=== PATIENT | female | born 2000 | race African-American/Black ===

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

== ENCOUNTER 2020-09-10 07:50 | Emergency (ER) | payer OTHER ==
[~2020-09-10] VITALS: Ht 167.6 cm; Wt 59.0 kg
[2020-09-10 07:53] VITALS: BP 102/60
--- NOTE | 2020-09-10 08:00 | NUR ---
PT AMBULATED TO BED 7 WITH STEADY GAIT
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
--- NOTE | 2020-09-10 08:12 | NUR ---
DR CASTRO AT BEDSIDE
[2020-09-10] MEDS ORDERED: NAPR-54 PO (08:19)
[2020-09-10 08:25] VITALS: BP 102/60
== END 2020-09-10 08:25 | disposition home or self-care (01) ==
LOC: MED 07:50
DX: M79.18 Myalgia, other site (principal); F12.90 Cannabis use, unspecified, uncomplicated; Z79.899 Other long term (current) drug therapy
CPT/HCPCS: 81002; 81025; 99282

== ENCOUNTER 2021-08-12 07:36 | Emergency (ER) | payer OTHER ==
[~2021-08-12] VITALS: Ht 154.9 cm; Wt 54.4 kg
[~2021-08-12 07:36] MED LIST: NAPR-54 PO
[2021-08-12 07:51] VITALS: BP 117/67
--- NOTE | 2021-08-12 08:06 | NUR ---
21 Y/O F BIB FAMILY C/O RIGHT EAR PAIN AND N/V X 7 DAYS. PT STATES RIGHT EAR PAIN X 1 DAY, 6/10, SHARP, RADIATES TO RIGHT SHOULDER. INTERMITTENT VOMITING 3 EPISODES PER DAY UPON WAKING. NO AGGREVATING OR RELIEVING FACTORS. PT DENIES FEVER, CHILLS, DIAHRREA, CONSTIPATION. PT DENIES TAKING MEDICATION TO TREAT SYMPTOMS. SKIN IS INTACT, PINK/WARM/DRY; AAOX4, PERRL, WITH EVEN AND STEADY GAIT; LUNGS CLEAR BL, BREATHING UNLABORED; HR EVEN AND REGULAR, BL PERIPHERAL PULSES PRESENT; BS ACTIVE X4, NO TENDERNESS TO PALPATION, NO HEPATOSPLENOMEGALLY PALPATED, RESONANT TO PERCUSSION; PT DENIES ANY FEVER, CP, SOB, OR COUGH AT THIS TIME; VSS; PATIENT POSITIONED FOR COMFORT; HOB ELEVATED; BEDRAILS UP X2; BED DOWN. CALL LIGHT WITHIN REACH. HX OF CROHNS DISEASE IN 2011 DENIES MEDICATION NKDA
[2021-08-12] MEDS ORDERED: ONDANSETRON 4 MG/2 ML VIAL IVP ONE (08:15)
[2021-08-12] MEDS ORDERED: NACL 0.9% 1,000 ML IV SCH (08:15)
--- NOTE | 2021-08-12 08:34 | NUR ---
PT TRANSPORTED TO [facility] BY WHEELCHAIR.
--- NOTE | 2021-08-12 08:57 | NUR ---
Blood for labwork drawn from AC. Patient tolerated well.
--- NOTE | 2021-08-12 08:58 | NUR ---
IV fluids initiated. Patient tolerated well.
[2021-08-12 09:02] LABS: BASOPHILS % (AUTO) 0.1 % (0.0-2.0); EOSINOPHILS % (AUTO) 0.5 % (0.0-4.0); HEMATOCRIT 38.8 % (36-48); HEMOGLOBIN 13.1 g/dL (12.0-16.0); LYMPHOCYTES % (AUTO) 15.6 % (20.5-51.1); MEAN CORPUSCULAR HEMOGLOBIN 27 pg (27-31); MEAN CORPUSCULAR HGB CONC 34 g/dL (33-37); MEAN CORPUSCULAR VOLUME 79.2 fL (80-94); MONOCYTES # (AUTO) 0.7 K/uL (0.8-1.0); MONOCYTES % (AUTO) 10.9 % (1.7-9.3); NEUTROPHILS # (AUTO) 4.9 K/uL (1.8-7.7); NEUTROPHILS % (AUTO) 72.9 % (42.2-75.2); PLATELET COUNT (AUTO) 343 K/uL (140-450); RED CELL DISTRIBUTION WIDTH 13.8 % (11.6-13.7); WHITE BLOOD COUNT (AUTO) 6.7 K/uL (4.8-10.8)
[2021-08-12 09:33] LABS: ALBUMIN 4.2 g/dL (3.4-5.0); ANION GAP 15.6 (8-16); CREATININE 0.6 mg/dL (0.6-1.3); POTASSIUM 3.6 mmol/L (3.5-5.1); TOTAL BILIRUBIN 0.5 mg/dL (0.0-1.0)
--- NOTE | 2021-08-12 10:05 | NUR ---
PT REASSED FOR PAIN 0/10. VITAL SIGNS WITHIN NORMAL LIMITS. PT COMFORTABLE IN BED, BED IN LOWEST POSITION, WHEELS LOCKED, SIDE RAIL X1 UP, CALL LIGHT WITHIN REACH.
[2021-08-12] MEDS ORDERED: PNV91TAB8 PO (10:22)
[2021-08-12] MEDS ORDERED: DOXY1TCP PO (10:22)
[2021-08-12] MEDS ORDERED: AMOX500C25 PO (10:22)
[2021-08-12 10:35] VITALS: BP 113/54
--- NOTE | 2021-08-12 10:35 | NUR ---
Patient discharged with v/s stable. Written and verbal after care instructions given and explained. Patient alert, oriented and verbalized understanding of instructions. Ambulatory with steady gait. All questions addressed prior to discharge. ID band removed. Patient advised to follow up with PMD. Rx of Amoxicillin, , Diclegis given. Patient educated on indication of medication including possible reaction and side effects. Opportunity to ask questions provided and answered.
[2021-08-12 11:05] LABS: APPEARANCE,URINE CLEAR (CLEAR); BILIRUBIN,URINE NEGATIVE (NEGATIVE); BLOOD, URINE NEGATIVE (NEGATIVE); COLOR,URINE YELLOW (YELLOW); LEUKOCYTE ESTERASE ,URINE NEGATIVE (NEGATIVE); NITRITE, URINE NEGATIVE (NEGATIVE); UGLUCOSE NEGATIVE (NEGATIVE)
[2021-08-12 12:06] LABS: CANNABINOID, URINE POSITIVE ng/mL (NEG <=50)
[2021-08-12 12:07] LABS: BARBITURATE, URINE NEGATIVE ng/ml (NEG <=200); BENZODIAZEPINE, URINE NEGATIVE ng/mL (NEG <=200); COCAINE, URINE NEGATIVE ng/mL (NEG <=300); OPIATE, URINE POSITIVE ng/mL (NEG <=2000); PHENCYCLIDINE SCREEN,URINE NEGATIVE ng/mL (NEG <=25)
== END 2021-08-12 10:35 | disposition home or self-care (01) ==
LOC: MED 07:36
DX: O9A.219 Injury, poisoning and certain other consequences of external causes complicating pregnancy, unspecified trimester (principal); O21.8 Other vomiting complicating pregnancy; O26.899 Other specified pregnancy related conditions, unspecified trimester; S46.811A Strain of other muscles, fascia and tendons at shoulder and upper arm level, right arm, initial encounter; H66.91 Otitis media, unspecified, right ear; F12.90 Cannabis use, unspecified, uncomplicated; Z79.899 Other long term (current) drug therapy; X58.XXXA Exposure to other specified factors, initial encounter; Y93.89 Activity, other specified; Y92.89 Other specified places as the place of occurrence of the external cause; Y99.8 Other external cause status
CPT/HCPCS: 36415; 71045; 73030; 80053; 80305; 81003; 81025; 83690; 84702; 84703; 85025; 96361; 96374; 99284; J2405

== ENCOUNTER 2022-03-12 13:39 | Emergency (ER) | payer OTHER ==
[~2022-03-12] VITALS: Ht 167.6 cm; Wt 53.1 kg
[~2022-03-12 13:39] MED LIST changes: +AMOX500C25 PO; +DOXY1TCP PO; +PNV91TAB8 PO
[2022-03-12 13:45] VITALS: BP 102/66
[2022-03-12] MEDS ORDERED: ACETAMINOPHEN EXTRA STRENGTH 500 MG TAB PO ONE (13:50)
[2022-03-12] MEDS ORDERED: ACETAMINOPHEN EXTRA STRENGTH 500 MG TAB ONE (13:53)
--- NOTE | 2022-03-12 13:58 | NUR ---
GIVEN VERBAL ORDER BY DR. MOTLEY TO GIVE 1000MG TYLENOL
--- NOTE | 2022-03-12 14:27 | NUR ---
MARCELLO AND FLU SWABS COLLECTED AND WALKED TO LAB
[2022-03-12] MEDS ORDERED: KETOROLAC 15 MG/ML VIAL IVP ONE (14:45)
[2022-03-12] MEDS ORDERED: NACL 0.9% 1,000 ML IV ONE (14:45)
--- NOTE | 2022-03-12 14:45 | NUR ---
PT C/O HEADACHE, FATIGUE, SORE THROAT X2 DAYS. IV INSERTED TO LEFT AC #18GUAGE FLUIDS INFUSING PER ORDER.
--- NOTE | 2022-03-12 15:32 | NUR ---
URINE COLLECTED RESULTS GIVEN TO GEOVANNY KIM
[2022-03-12] MEDS ORDERED: IBUP-2213 PO (15:54)
[2022-03-12] MEDS ORDERED: PROM118S5 PO (15:54)
[2022-03-12] MEDS ORDERED: ACET-10509 PO (15:54)
[2022-03-12] MEDS ORDERED: TAM75 PO (16:12)
[2022-03-12 16:25] VITALS: BP 111/67
--- NOTE | 2022-03-12 16:26 | NUR ---
Patient discharged with v/s stable. Written and verbal after care instructions given and explained. Patient alert, oriented and verbalized understanding of instructions. Ambulatory with steady gait. All questions addressed prior to discharge. ID band removed. Patient advised to follow up with PMD. Rx of MOTRIN, ROBITUSSIN given. Patient educated on indication of medication including possible reaction and side effects. Opportunity to ask questions provided and answered.
== END 2022-03-12 16:26 | disposition home or self-care (01) ==
LOC: MED 13:39
DX: B34.9 Viral infection, unspecified (principal); Z20.822 Contact with and (suspected) exposure to COVID-19; F12.90 Cannabis use, unspecified, uncomplicated
CPT/HCPCS: 71045; 81002; 81025; 87426; 87804; 96361; 96374; 99284; J1885; J7030